=== PATIENT | female | born 1990 | race Caucasian/White ===

== ENCOUNTER 2024-07-31 18:43 | Emergency (ER) | payer OTHER ==
[~2024-07-31] VITALS: Ht 160 cm; Wt 134.1 kg
[2024-07-31 18:53] VITALS: BP 136/68; PULSE 88; RESP 16; TEMP 98; O2SAT 98
== END 2024-07-31 22:56 | disposition home or self-care (01) ==
LOC: EMS 18:43
DX: T17.228A Food in pharynx causing other injury, initial encounter (principal); T18.9XXA Foreign body of alimentary tract, part unspecified, initial encounter; W44.9XXA Unspecified foreign body entering into or through a natural orifice, initial encounter; X58.XXXA Exposure to other specified factors, initial encounter; Y93.89 Activity, other specified; Y92.89 Other specified places as the place of occurrence of the external cause; Y99.8 Other external cause status
CPT/HCPCS: 99281; Z7502